=== PATIENT | male | born 1990 | race Two or more races ===

== ENCOUNTER 2021-02-04 20:42 | Emergency (ER) | payer MEDICAID, OTHER ==
[~2021-02-04] VITALS: Ht 170.2 cm; Wt 63.5 kg
[2021-02-04 21:19] LABS: Urine Bacteria NONE SEEN /hpf (None Seen); Urine Blood 2+ /uL (Negative); Urine Specific Gravity 1.004 (1.001-1.035); Urine WBC 1 /hpf (0 - 3)
[2021-02-04 22:50] LABS: Amphetamine Screen, Urine NEGATIVE (NEGATIVE); Barbiturate Scree,Urine NEGATIVE (NEGATIVE); Benzodiazephine Screen, Urine NEGATIVE (NEGATIVE); Cannabinoid Screen, Urine POSITIVE (NEGATIVE); Cocaine Screen, Urine NEGATIVE (NEGATIVE); Opiate Scree,Urine NEGATIVE (NEGATIVE); Phencyclidine Screen, Urine NEGATIVE (NEGATIVE)
[2021-02-04 23:32] LABS: Basophils # (auto) 0.1 10 ^3/uL (0-0.2); Basophils % (auto) 1.1 % (0.0-2.0); Eosinophils # (auto) 0 10 ^3/uL (0-0.8); Eosinophils % (auto) 0.5 % (0.0-7.0); Hematocrit 41.6 % (41.0-53.0); Hemoglobin 14.3 g/dL (13.5-17.5); Lymphocytes # (auto) 1.3 10 ^3/uL (0.4-5.4); Mean Corpuscular Hgb Conc. 34.2 g/dL (32.0-36.0); Mean Corpuscular Volume 96.5 fL (80.0-100.0); Monocytes # (auto) 0.7 10 ^3/uL (0-1.3); Monocytes % (auto) 12.9 % (0.0-12.0); Neutrophils # (auto) 3.2 10 ^3/uL (1.6-8.6); Neutrophils % (auto) 60.5 % (37.0-80.0); Nucleated Red Blood Cells % 0.1 %; Red Blood Cells 4.31 10^6/uL (4.5-5.90); Red Cell Distribution Width 15.8 % (11.8-14.3); White Blood Cell 5.3 10^3/uL (4.4-10.8)
[2021-02-04 23:53] LABS: Salicylate < 1.7 mg/dL (2.8-20.0)
[2021-02-04 23:55] LABS: Albumin 4.2 g/dL (3.4-5.0); Calcium 9.4 mg/dL (8.5-10.1)
[2021-02-05] LABS: BUN/Creatinine Ratio 7.6; Bilirubin, Total 0.6 mg/dL (0.2-1.0); Total Protein 8.4 g/dL (6.4-8.2)
[2021-02-05 00:03] LABS: Acetaminophen < 2.0 ug/mL (10-30)
[2021-02-05 00:06] LABS: Potassium 2.7 mmol/L (3.5-5.1)
[2021-02-05] MEDS ORDERED: POTASSIUM CHL 20 Meq TABLET PO ONE (00:15)
[2021-02-05] MEDS: POTASSIUM CHL 20MEQ/100ML 100 ML IV SCH ×2 (01:18→02:40)
[2021-02-05] MEDS ORDERED: traZODone HCL 50 MG TAB PO ONE ×2 (02:15→03:15)
[2021-02-05] MEDS ORDERED: SODIUM CHLORIDE 0.9% 2,000 ML IV ONE (03:15)
[2021-02-05] MEDS ORDERED: LORazepam 2MG/ML-1ML VIAL IV ONE (05:30)
[2021-02-05] MEDS ORDERED: diphenhdrAMINE HCL 25 MG CAP PO PRN (09:00)
[2021-02-05] MEDS ORDERED: HALOPERIDOL 5 MG TAB PO PRN (09:00)
[2021-02-05] MEDS ORDERED: cefTRIAXone 1GM/50ML D5W 50 ML IV ONE (13:00)
[2021-02-05] MEDS ORDERED: SODIUM CHLORIDE 0.9% 1,000 ML IVB ONE (13:00)
[2021-02-05] MEDS ORDERED: FOLIC ACID 1 MG, MULTIPLE VITAMIN 10 ML, MAGNESIUM SULF SDV 50% 8 MEQ, THIAMINE INJ 100... INJ SCH ×5 (13:21)
[2021-02-05 19:36] VITALS: BP 143/97
== END 2021-02-06 02:21 | disposition home or self-care (01) ==
LOC: ER 20:43
DX: R44.3 Hallucinations, unspecified (principal); F10.129 Alcohol abuse with intoxication, unspecified; E87.6 Hypokalemia; F17.210 Nicotine dependence, cigarettes, uncomplicated; Y90.6 Blood alcohol level of 120-199 mg/100 ml
CPT/HCPCS: 36415; 71045; 80053; 80307; 80320; 80329; 81001; 83690; 85025; 93005; 96365; 96366; 96367; 96375; 99285; J0696; J2060; J3411; J3475; J3480; J7030

== ENCOUNTER 2021-07-14 19:47 | Emergency (ER) | payer MEDICAID ==
[~2021-07-14] VITALS: Ht 170.2 cm; Wt 62.6 kg
[2021-07-14] MEDS ORDERED: LORazepam 2MG/ML-1ML VIAL IV ONE (20:15)
[2021-07-14 20:29] LABS: Basophils # (auto) 0 10 ^3/uL (0-0.2); Basophils % (auto) 0.2 % (0.0-2.0); Eosinophils # (auto) 0 10 ^3/uL (0-0.8); Eosinophils % (auto) 0.1 % (0.0-7.0); Hematocrit 41.4 % (41.0-53.0); Hemoglobin 14.4 g/dL (13.5-17.5); Lymphocytes # (auto) 1.5 10 ^3/uL (0.4-5.4); Lymphocytes % (auto) 14.8 % (10.0-50.0); Mean Corpuscular Hemoglobin 32.8 pg (28.0-32.0); Mean Corpuscular Hgb Conc. 34.8 g/dL (32.0-36.0); Mean Corpuscular Volume 94.3 fL (80.0-100.0); Monocytes # (auto) 0.5 10 ^3/uL (0-1.3); Monocytes % (auto) 5.2 % (0.0-12.0); Neutrophils # (auto) 8.1 10 ^3/uL (1.6-8.6); Neutrophils % (auto) 79.7 % (37.0-80.0); Nucleated Red Blood Cells % 0.2 %; Red Blood Cells 4.39 10^6/uL (4.5-5.90); Red Cell Distribution Width 13.7 % (11.8-14.3); White Blood Cell 10.2 10^3/uL (4.4-10.8)
[2021-07-14 20:42] LABS: Anion Gap 6 (5-15); BUN/Creatinine Ratio 5.7; Blood Alcohol < 3.0 mg/dL (0-5); Blood Urea Nitrogen 5 mg/dL (7-18); Calcium 9.6 mg/dL (8.5-10.1); Carbon Dioxide 27 mmol/L (21-32); Chloride 103 mmol/L (98-107); GFR African American 131 mL/min; GFR Non-African American 108 mL/min; Glucose 92 mg/dL (74-106); Potassium 3.3 mmol/L (3.5-5.1); Sodium 136 mmol/L (136-145)
[2021-07-14] MEDS ORDERED: CHL25C PO ×2 (21:24→21:26)
[2021-07-14] MEDS ORDERED: POTASSIUM CHL 20 Meq TABLET PO ONE (21:30)
[2021-07-14 22:00] VITALS: BP 145/107
== END 2021-07-14 22:22 | disposition home or self-care (01) ==
LOC: ER 19:47
DX: F10.239 Alcohol dependence with withdrawal, unspecified (principal); F17.210 Nicotine dependence, cigarettes, uncomplicated; Y90.0 Blood alcohol level of less than 20 mg/100 ml
CPT/HCPCS: 36415; 80048; 80320; 85025; 96374; 99283; J2060